=== PATIENT | male | born 1945 | race African-American/Black ===

== ENCOUNTER 2016-12-22 13:31 | Emergency (ER) | payer MEDICARE, OTHER ==
[2016-07-31 09:42] VITALS: BMI 32.9
[~2016-12-22 13:31] MED LIST: BAYER CHEWABLE81 MG PO; BUMEX 1 MG TAB1 MG PO; COREG12.5 MG PO; FERREX 150 FO1 UDCAP PO; FLOMAX0.4 MG PO; GLUCOTROL ER2.5 MG PO; HYDRALAZINE HCL50 MG PO; HYDROCODON-ACE1 EAC7 PO; LASIX40 MG PO; MUCUS RELIEF400 MG PO; NEURONTIN 300300 MG PO; NORVASC5 MG PO; PHOSLO667 MG PO; ROCALTROL0.25 MCG PO; SODIUM BICARBO650 MG PO; ULTRAM50 MG PO
[2016-12-22 13:57] LABS: BASOPHILS 0.4 % (0-2); EOSINOPHILS 2.5 % (0-7); HEMATOCRIT 32.3 % (42.0-54.0); HEMOGLOBIN 10.6 g/dL (13.5-17.5); IMMATURE GRANULOCYTES 0.4 % (0-5); LYMPHOCYTES 30.3 % (15-50); MCH 30.5 pg (26.0-34.0); MCHC 32.8 g/dL (31.0-37.0); MCV 93.1 fL (80.0-100.0); MEAN PLATELET VOLUME 10.3 fL (7.4-10.4); MONOCYTES 7.8 % (2-11); NEUTROPHILS 58.6 % (40-80); PLATELET COUNT 161 10x3/uL (130-400); RBC 3.47 10x6/uL (4.20-6.10); RDW 13.9 % (11.5-14.5); WBC 6.8 10x3/uL (4.8-10.8)
[2016-12-22 14:37] LABS: CREATININE - SERUM 3.1 mg/dL (0.6-1.3); GLUCOSE 75 mg/dL (74-106); UREA NITROGEN 59 mg/dL (7-18); eGFR NON AFRICAN AMERICAN 21 mL/min (90-120)
[2016-12-22 14:38] LABS: ALBUMIN 3.4 g/dL (3.4-5.0); ALKALINE PHOSPHATASE 31 U/L (46-116); ALT (SGPT) 15 U/L (10-68); BILIRUBIN - TOTAL 0.24 mg/dL (0.2-1.3); CALC OSMOLALITY 296 mosm/kg (275-300); CALCIUM 7.7 mg/dL (8.5-10.1); CARBON DIOXIDE 27.4 mmol/L (21.0-32.0); CHLORIDE - SERUM 102 mmol/L (98-107); CHOL - HDL RATIO 2.8 ratio (2.3-4.9); CHOLESTEROL, TOTAL 156 mg/dL (0-200); CREATINE KINASE 30 UL (21-232); HDL CHOLESTEROL 55 mg/dL (32-96); LDL CHOLESTEROL 95 mg/dL (0-100); LDL-HDL RATIO 1.7 ratio (1.5-3.5); POTASSIUM - SERUM 5.1 mmol/L (3.5-5.1); PROTEIN - SERUM 7.1 g/dL (6.4-8.2); SODIUM 141 mmol/L (136-145); TRIGLYCERIDE 31 mg/dL (30-200); TROPONIN-I < 0.017 ng/mL (0.000-0.060)
[2016-12-22 14:42] LABS: CKMB 0.5 U/L (0.0-3.6)
== END 2016-12-22 15:18 | disposition home or self-care (01) ==
LOC: D.ER 13:31
PROVIDERS: Emergency Medicine
DX: R07.89 Other chest pain (principal); I50.9 Heart failure, unspecified; I12.9 Hypertensive chronic kidney disease with stage 1 through stage 4 chronic kidney disease, or unspecified chronic kidney disease; N18.9 Chronic kidney disease, unspecified; E83.51 Hypocalcemia; E87.1 Hypo-osmolality and hyponatremia; E11.9 Type 2 diabetes mellitus without complications; R00.1 Bradycardia, unspecified

== ENCOUNTER → 2019-05-19 16:15 | Outpatient (CLI) | payer MEDICARE, OTHER ==
[2016-07-31 09:42] VITALS: BMI 32.9
== END | disposition home or self-care (01) ==
LOC: D.RAD 16:15
PROVIDERS: ATTEND Internal Medicine Nephrology
DX: M25.512 Pain in left shoulder (principal)

== ENCOUNTER → 2019-06-08 09:31 | Outpatient (CLI) | payer MEDICARE, OTHER ==
[2016-07-31 09:42] VITALS: BMI 32.9
--- NOTE | 2019-06-12 13:56 | EC ---
PATIENT:ANDREINA FONTANA DATE OF SERVICE: 06/08/19 SEX: M MEDICAL RECORD: [id number] DATE OF : 41 LOCATION:[facility] AGE OF PATIENT: 74 ADMISSION DATE: 06/08/19 REFERRING PHYSICIAN: INTERPRETING PHYSICIAN: DELON CANSECO MD ECHOCARDIOGRAM REPORT ECHO CHARGES 4 ECHO COMPLETE Date: 06/08/19 CLINICAL DIAGNOSIS: H/O HTN/CAD ECHOCARDIOGRAPHIC MEASUREMENTS (adult normal given) AC root (d.<3.7cm) 3.1 cm LV Septum d (<1.2 cm> 1.2 cm Valve Excursion 1.7 cm LV Septum (systole) 1.8 cm Left Atria (s.<4.0cm> 4.2 cm LVPW d(<1.2cm) 1.2 cm RV (d.<2.3cm) 2.7 cm LVPW (sytole) 1.7 cm LV diastole(<5.6CM) 5.3 cm MV E-F(>70mm/sec) cm LV systole 3.7 cm LVOT Diameter 2.0 cm MV exc.(>10mm) cm Est.ejection fraction (50-75%) % DOPPLER: LVIT cm/sec A 116 cm/sec E 59.0 cm/sec LA cm/sec RVSP 32.0 mmHg LVOT 111 cm/sec AOP1/2T m/s Asc. Ao 192 cm/sec RVOT 53.0 cm/sec RA cm/sec PA 87.0 cm/sec AV Gradient Peak 15.0 mmHg AV Mean 9.2 mmHg AV Area 1.7 cm MV Gradient Peak 5.3 mmHg MV Mean 1.7 mmHg MV Area cm COMMENTS: OP - HC Market Editor: 1 MILY ORQUIDEA Machine Heel Seat Fitter: 3 Dr. Chin TAPE# PACS Pericardial Effusion N DATE OF SERVICE: Adequate 2D echo, color flow imaging, spectral Doppler, and M-Mode. Borderline LVH. LV internal dimension is normal. Wall motion is normal. EF is greater than or equal to 52%. Aortic valve is tricuspid. No evidence of stenosis by Doppler interrogation. Left atrium is minimally dilated at 4.2 cm. Mitral valve shows no prolapse. Trace MR. Right-sided chambers grossly normal. Trace TR. ECHOCARDIOGRAM REPORT [id number] ANDREINA FONTANA TRANSINT:[id number] Voice Confirmation ID: [id number] DOCUMENT ID: [id number] DELON CANSECO MD at 1356 CC: [id number] DICTATION DATE: 06/09/19 1212 CASTING TECHNICIAN: 06/09/19 1233 DEP CLI 06/08/19 [place] [id number] [place] [id number]
== END | disposition home or self-care (01) ==
LOC: D.HCCECHO 06-07 10:00
PROVIDERS: ATTEND Internal Medicine Interventional Cardiology
DX: I25.10 Atherosclerotic heart disease of native coronary artery without angina pectoris (principal)